=== PATIENT | female | born 1990 | race Caucasian/White ===

== ENCOUNTER 2017-05-19 16:20 | Emergency (ER) | payer BC ==
[~2017-05-19] VITALS: Ht 167.6 cm; Wt 131.5 kg
[2017-05-19 16:25] VITALS: BP 122/70
== END 2017-05-19 16:55 | disposition home or self-care (01) ==
LOC: ER 16:22
DX: S40.012A Contusion of left shoulder, initial encounter (principal); M54.9 Dorsalgia, unspecified; J45.909 Unspecified asthma, uncomplicated; Z88.8 Allergy status to other drugs, medicaments and biological substances; V49.49XA Driver injured in collision with other motor vehicles in traffic accident, initial encounter; Y93.89 Activity, other specified; Y92.410 Unspecified street and highway as the place of occurrence of the external cause; Y99.8 Other external cause status
CPT/HCPCS: 99281; A4606; Z7610; Z7502